=== PATIENT | female | born 1955 | race Two or more races ===

== ENCOUNTER 2019-09-18 12:15 | Inpatient (IN) | payer OTHER ==
[~2019-09-18] VITALS: Ht 157.5 cm; Wt 70.3 kg
[2019-10-02] MEDS ORDERED: ZESTRIL5 MG PO (12:39)
[2019-10-02] MEDS ORDERED: TIROSINT75 MCG PO (12:39)
[2019-10-02] MEDS ORDERED: SULFAZINE EC500 MG PO (12:40)
[2019-10-02] MEDS ORDERED: ZANAFLEX4 M1 PO (12:40)
[2019-10-11] MEDS ORDERED: INTESTINEX680 M1 PO (14:57)
[2019-10-11] MEDS ORDERED: PRILOSEC OTC20 MG PO (14:57)
[2019-10-11] MEDS ORDERED: PERCOCET 5-3251 EACH PO (14:57)
== END 2019-10-11 15:39 | disposition home or self-care (01) | DRG 334 ==
LOC: SURG 10-08 06:00 → O/R 10-08 06:00 → SURG 10-08 07:00
PROVIDERS: ADMIT Surgery
PROC: 0DBP4ZZ Excision of Rectum, Percutaneous Endoscopic Approach (ICD-10-PCS; principal; 2019-10-08 07:00)
PROC: 4A09X1Z Measurement of Respiratory Capacity, External Approach (ICD-10-PCS; 2019-10-09)
DX: K57.30 Diverticulosis of large intestine without perforation or abscess without bleeding (principal); E03.9 Hypothyroidism, unspecified; I10 Essential (primary) hypertension

== ENCOUNTER 2020-10-19 06:55 | Day surgery (SDC) | payer OTHER ==
[~2020-10-19 06:55] MED LIST: INTESTINEX680 M1 PO; PERCOCET 5-3251 EACH PO; PRILOSEC OTC20 MG PO; SULFAZINE EC500 MG PO; TIROSINT75 MCG PO; ZANAFLEX4 M1 PO; ZESTRIL5 MG PO
== END 2020-10-19 12:20 | disposition home or self-care (01) ==
LOC: AMB-ENDOS 06:55
PROVIDERS: ATTEND Surgery
DX: K57.32 Diverticulitis of large intestine without perforation or abscess without bleeding (principal); Z20.822 Contact with and (suspected) exposure to COVID-19